=== PATIENT | male | born 1970 | race Caucasian/White ===

== ENCOUNTER 2019-05-12 15:59 | Emergency (ER) | payer SELFPAY ==
[~2019-05-12] VITALS: Ht 185.4 cm; Wt 113.9 kg
[2019-05-12 16:09] VITALS: BP 148/122; Ht 185.4 cm; Wt 113.9 kg
== END 2019-05-12 18:28 | disposition home or self-care (01) ==
LOC: ED 15:59
DX: L50.9 Urticaria, unspecified (principal); I10 Essential (primary) hypertension; F17.210 Nicotine dependence, cigarettes, uncomplicated
CPT/HCPCS: J1200; J7512